=== PATIENT | female | born 1940 | race Caucasian/White ===

== ENCOUNTER → 2017-07-29 | Outpatient (CLI) | payer MEDICARE, OTHER ==
--- NOTE | 2017-07-29 11:15 | RADRPT ---
PROCEDURE: XR Hip. CLINICAL INDICATION: Pain. TECHNIQUE: Left hip x-rays, 2 views. COMPARISON: None. FINDINGS: Bone density appears decreased. Right hip arthroplasty hardware is in place and intact. Severe joint space narrowing with articular surface sclerosis and osteophyte formation of the left hip is observ ed. Bony cortices are intact. Soft tissues are unremarkable. IMPRESSION: Severe osteoarthritis of the left hip. RPTAT: AAQQ .Martina Persaud MD, MD Date Time Electronically viewed and signed by .Martina Persaud MD, on 07/29/2017 11:14 .T/
--- NOTE | 2017-08-06 07:35 | HKNOTE ---
DATE OF SERVICE: 07/29/2017 MAIN COMPLAINT: Pain in the left hip. HISTORY OF MAIN COMPLAINT: The patient is a 77-year-old female who underwent a right total hip repl acement performed by me 17 years ago in 1999. There were no postoperative problems or complications . The patient made an excellent recovery. She has been totally delighted with the results of surge ry ever since and the hip feels completely normal. She now complains of pain in her left groin. Pa in has been present now for more than 2 years but has become progressively worse in the past 6 month s. Pain varies, but it is mostly moderate in degree. The pain is aggravated by walking, weightbear ing and stair climbing. She does not get rest pain. She does get night pain, which wakes her up. She has been taking [id number]-uhv-xzirath pain medications and anti-inflammatories. She takes Excedrin P M at night. None of this helps very much. She does not have any history of problems with her lower back. She has no numbness or tingling in h er legs. On a level surface she can walk perhaps a half a block without stopping. She does not use a walking aid. She does limp. Her leg lengths feel equal. She does not have a shoe lift. She ca nnot clip her toenails or tie her shoelaces on the left side. PAST ORTHOPEDIC HISTORY, PREVIOUS ORTHOPEDIC OPERATIONS: Right total hip replacement 17 years ago. PRIOR CORTISONE INTAKE: None. ALCOHOL INTAKE: One or 2 alcoholic beverages a week. OTHER JOINT PROBLEMS: None. BLOOD TESTS FOR ARTHRITIS: None. PRIOR INJURIES TO HIPS OR KNEES: None. WORK STATUS: [employer]. PAST MEDICAL HISTORY: Hypertension. PAST SURGICAL HISTORY: Right total hip replacement by Dr. Flores in 1999. DRUG ALLERGIES: NONE. MEDICATIONS: Lisinopril 10 mg daily for hypertension. FAMILY HISTORY: Mother at 85 of bone cancer, otherwise noncontributory. SYSTEMS REVIEW: Entirely negative! HABITS: The patient has never smoked. She drinks an alcoholic beverage perhaps once a week. [employer]: Augustus James, [address], [address] [address] (phone [phone]). PHYSICAL EXAMINATION GENERAL: An extremely youthful and fit-looking 77-year-old female. VITAL SIGNS: Height 5 feet 3 inches, weight 188 pounds. Blood pressure 145/70, temperature 99 (aft er coffee). RIGHT HIP: A full range of motion without pain. LEFT HIP: Flexion is 95 degrees, external rotation 30, internal rotation -10, abduction 25, adducti on 20, external rotation contracture 10 degrees. Severe pain in the left groin at the limits of mot ion. RIGHT AND LEFT KNEE: Completely normal clinically. IMAGING: Plain x-rays of her pelvis and hips obtained today at the [facility] we re reviewed. The right hip shows a perfect hip replacement without the slightest suggestion of any problem whatso ever. No evidence of loosening. The plastic liner of the socket shows absolutely no wear after 17 years! Imaging of the left hip shows severe [id number] degenerative osteoarthritis of the hip joint. Sub chondral sclerosis and intraosseous cyst formation, no osteophytes. DIAGNOSES: 1. Exceedingly severe degenerative osteoarthritis of the left hip. 2. Status post right total hip replacement. 3. Hypertension. MANAGEMENT: Patient advised that she will definitely need to have a left hip replacement operation. The surgery and the updated technique of the surgery was discussed with her (anterior hip replacem ent) in a fair amount of detail. She was advised that I no longer perform surgeries but that I woul d like to refer her to Dr. Elias Bass who is new to my office but is well established at [facility] and a seasoned hip replacement surgeon. She is agreeable to having Dr. Bass do the surgery when she is ready to proceed. She would like to have the surgery in August. Dictated By: ADELITA HUANG/JO-ANN Conf#: [id number] DID#: [id number] CC: Augustus James;*EndCC*
== END | disposition home or self-care (01) ==
LOC: HKI 10:55
DX: M16.12 Unilateral primary osteoarthritis, left hip (principal); I10 Essential (primary) hypertension; Z96.641 Presence of right artificial hip joint; Z80.8 Family history of malignant neoplasm of other organs or systems
CPT/HCPCS: 73502; G0463

== ENCOUNTER → 2017-10-06 | Outpatient (CLI) | END | disposition home or self-care (01) ==

== ENCOUNTER 2017-10-20 05:45 | Inpatient (IN) | END 2017-10-23 14:00 | disposition home health service (06) | DRG 983 ==

== ENCOUNTER → 2017-11-03 | Outpatient (CLI) | END | disposition home or self-care (01) ==

== ENCOUNTER → 2017-12-08 | Outpatient (CLI) | END | disposition home or self-care (01) ==

== ENCOUNTER → 2018-01-05 | Outpatient (CLI) | END | disposition home or self-care (01) ==

== ENCOUNTER 2018-02-07 12:11 | Inpatient (IN) | END 2018-02-09 14:50 | disposition home health service (06) | DRG 468 ==

== ENCOUNTER → 2018-02-21 | Outpatient (CLI) | END | disposition home or self-care (01) ==

== ENCOUNTER → 2018-03-25 | Outpatient (CLI) | END | disposition home or self-care (01) ==

== ENCOUNTER → 2018-05-06 | Outpatient (CLI) | END | disposition home or self-care (01) ==

== ENCOUNTER → 2018-07-29 | Outpatient (CLI) | END | disposition home or self-care (01) ==